=== PATIENT | female | born 1995 | race Two or more races ===

== ENCOUNTER 2018-01-07 01:27 | Emergency (ER) | payer MEDICAID ==
[~2018-01-07] VITALS: Ht 160 cm; Wt 63.0 kg
[2018-01-07] MEDS ORDERED: ONDANSETRON ODT 4 MG TAB PO ONE (02:30)
[2018-01-07] MEDS ORDERED: HYDROcodone-ACET 10/325MG TAB PO ONE (02:30)
[2018-01-07 02:38] LABS: Basophils # (auto) 0 uL; Basophils % (auto) 0.4 % (0.0-2.0); Eosinophils % (auto) 0.7 % (0.0-7.0); Lymphocytes # (auto) 1.8 uL; Mean Corpuscular Volume 80.3 fL (80.0-100.0); Monocytes # (auto) 0.5 uL; Red Cell Distribution Width 14.3 % (11.8-14.3)
[2018-01-07 02:40] LABS: Eosinophils # (auto) 0 uL; Hematocrit 36.4 % (36.0-46.0); Lymphocytes % (auto) 26.3 % (10.0-50.0); Monocytes % (auto) 7.2 % (0.0-12.0); Neutrophils # (auto) 4.6 uL; Neutrophils % (auto) 65.4 % (37.0-80.0); Platelet Count (auto) 212 10^3/uL (140-450); Red Blood Cells 4.53 10^6/uL (4.0-5.20)
[2018-01-07 02:42] LABS: Urine Bacteria NONE SEEN /hpf (None Seen); Urine Blood TRACE /uL (Negative); Urine Specific Gravity 1.008 (1.001-1.035); Urine WBC <1 /hpf (0 - 5)
[2018-01-07 02:44] LABS: Albumin 4.1 g/dL (3.4-5.0); BUN/Creatinine Ratio 17.7; Calcium 8.6 mg/dL (8.5-10.1); Mean Corpuscular Hemoglobin 26.7 pg (28.0-32.0)
[2018-01-07 02:47] LABS: Bilirubin, Total 0.3 mg/dL (0.2-1.0); Total Protein 7.8 g/dL (6.4-8.2)
[2018-01-07 02:49] LABS: Amphetamine Screen, Urine NEGATIVE (NEGATIVE); Barbiturate Scree,Urine NEGATIVE (NEGATIVE); Benzodiazephine Screen, Urine NEGATIVE (NEGATIVE); Cannabinoid Screen, Urine NEGATIVE (NEGATIVE); Cocaine Screen, Urine NEGATIVE (NEGATIVE); Opiate Scree,Urine NEGATIVE (NEGATIVE); Phencyclidine Screen, Urine NEGATIVE (NEGATIVE)
[2018-01-07] MEDS ORDERED: ONDANSETRON HCL 4 MG/2 ML VIAL IV ONE (03:15)
[2018-01-07] MEDS ORDERED: MORPHINE SULFATE 4 MG/ML SYR/VIAL IV ONE (03:15)
[2018-01-07] MEDS ORDERED: LORazepam 2MG/ML-1ML VIAL ONE (04:25)
[2018-01-07] MEDS ORDERED: TETANUS-DIPTH-ACEL PERTUSSIS 0.5ML SYRG IM ONE (04:30)
[2018-01-07] MEDS ORDERED: LORazepam 2MG/ML-1ML VIAL IV ONE (04:30)
[2018-01-07] MEDS ORDERED: cefTRIAXone SOD 1,000 MG VL ONE (04:30)
[2018-01-07] MEDS ORDERED: cefTRIAXone 1GM/50ML D5W 50 ML IV ONE (04:30)
[2018-01-07 04:39] VITALS: BP 113/69
== END 2018-01-07 06:44 | disposition home or self-care (01) ==
LOC: ER 01:27 → EDBD 01:27 → ER 06:39
DX: S70.02XA Contusion of left hip, initial encounter (principal); S80.02XA Contusion of left knee, initial encounter; S80.01XA Contusion of right knee, initial encounter; S60.212A Contusion of left wrist, initial encounter; S60.211A Contusion of right wrist, initial encounter; S80.212A Abrasion, left knee, initial encounter; S80.211A Abrasion, right knee, initial encounter; S60.812A Abrasion of left wrist, initial encounter; S60.811A Abrasion of right wrist, initial encounter; V49.9XXA Car occupant (driver) (passenger) injured in unspecified traffic accident, initial encounter; Y93.89 Activity, other specified; Y92.488 Other paved roadways as the place of occurrence of the external cause; Y99.8 Other external cause status
CPT/HCPCS: 36415; 72170; 73130; 73552; 73610; 73620; 80053; 80307; 81001; 81025; 85025; 90471; 90715; 96365; 96375; 99285; J0696; J2060; J2270; Q0162